=== PATIENT | female | born 1955 | race Caucasian/White ===

== ENCOUNTER → 2016-10-03 | Outpatient (CLI) | payer MEDICARE, MEDICAID | END | disposition home or self-care (01) | LOC: RAD.S 14:00 | DX: D45 Polycythemia vera (principal); F32.89 Other specified depressive episodes; F17.210 Nicotine dependence, cigarettes, uncomplicated ==

== ENCOUNTER → 2016-12-20 | Outpatient (CLI) | payer MEDICARE, MEDICAID | END | disposition home or self-care (01) | LOC: THER.SSS 13:52 | DX: D45 Polycythemia vera (principal) ==

== ENCOUNTER 2017-01-06 07:59 | Day surgery (SDC) | payer MEDICARE, MEDICAID ==
[~2017-01-06] VITALS: Ht 170.2 cm; Wt 111.4 kg
--- NOTE | ~2017-01-06 | CATH ---
Cardiac Diagnostic Report Demographics Patient Name TIM GEORGES Gender Female M Date of 1955 Age 62 year(s) Patient Number [id number] Date of Study 01/06/2017 Visit Number [id number] Room Number Corporate ID Ht 167.64 cm Wt 112.04 kg Accession Number [id number] BSA 2.19 m kg/m Referring Wilfredo CUETO Primary Physician Physician Willem Performing Wilfredo CUETO Secondary Physician Physician Willem Diagnostic Wilfredo CUETO Assisting Physician Physician Willem Interventional Wilfredo CUETO Physician Complaints Coordinator Physician Willem Findings and Conclusions Diagnostic Findings and Conclusion 1. Mild non-obstructive CAD. Diagnostic Recommendations 1. Risk factor modifications 2. Medical management of Afib. Procedure Description The patient was brought to the diagnostic cardiac catheterization laboratory in the fasting, non-sedated state. Informed consent was obtained in the written and verbal form after the risks and benefits were explained. The patient had no further questions and agreed to proceed. The planned puncture-incision site(s) were shaved and prepped with ChloraPrep and draped in the usual sterile manner. Conscious sedation, supplemental oxygen, and pain control medications were delivered by a registered nurse under physician guidance. Surface ECG rhythm, blood pressure measurement, and pulse oximetry were monitored throughout the procedure. Arterial access. The right radial access site was infiltrated with lidocaine. The vessel was entered with the Seldinger technique. A 6F michelle was advanced into the vessel and used for catheter placement. Selective left coronary angiography. A TIG catheter was advanced into the left coronary vessel ostium under Fluoroscopic guidance. Contrast was injected by hand. Images were obtained in multiple projections. Selective right coronary angiography. A TIG catheter was advanced into the right coronary vessel ostium under fluoroscopic guidance. Contrast was injected by hand. Images were obtained in multiple projections. Left heart catheterization. A PIG catheter was advanced across the aortic valve to the left ventricle under fluoroscopic guidance. Resting hemodynamics were obtained. Arterial artery hemostasis was achieved with TR band. The patient was transferred to a regular nursing floor via cart accompanied by a nurse. The patient left the laboratory in stable condition. Diagnostic Cath Status: Elective Procedure Procedure Type Diagnostic procedure:Angiography:, Coronary Angios w/[facility] Indications: Hyperlipidemia, Hypertension, Early family history of CAD, Tobacco use-current, Atrial fibrillation, Palpitations and Abnormal nuclear perfusion test. The procedure was explained in detail to the patient. Risks, complications and alternative treatments were reviewed. Written consent was obtained. Medications Reviewed with Patient prior to Procedure. Complications: No Complication. Angiographic Findings Dominance: Right Cardiac Arteries and Lesion Findings LMCA: Normal (0% Stenosis). LAD: Abnormal. Lesion on Prox LAD: 30% stenosis . LCx: Normal (0% Stenosis). RCA: Abnormal. Lesion on Dist RCA: 20% stenosis . Coronary Tree Procedure Data Procedure Date Date: 01/06/2017Start: 10:25 AM Entry Locations - Percutaneous access was performed through the Right Radial artery (Primary location). A 6 Fr sheath was inserted. Hemostasis was successfully obtained using a TR band. Procedure Medications Order and Administration + + +-------+-------+ !Time !Medication !Dosage !Route ! + + +-------+-------+ !01/06/2017 !Versed !2 mg !I.V. ! !10:28 AM ! ! ! ! + + +-------+-------+ !01/06/2017 !Fentanyl !50 mcg !I.V. ! !10:28 AM ! ! ! ! + + +-------+-------+ !01/06/2017 !Sodium Chloride !10 ml !I.V. ! !10:29 AM ! ! ! ! + + +-------+-------+ !01/06/2017 !Fentanyl !50 mcg !I.V. ! !10:32 AM ! ! ! ! + + +-------+-------+ !01/06/2017 !Versed !1 mg !I.V. ! !10:37 AM ! ! ! ! + + +-------+-------+ !01/06/2017 !SF Radial Cocktail: 200mcg Nitro, 2.5 mg ! !I.A. ! !10:40 AM !Verapamil, 5000u Heparin ! ! ! + + +-------+-------+ Devices Used - A6F TIG CATHETERwas used for:Coronary Angios. - ACATH 6FR PIG 145 110CM CATHETERwas used for:LV Pressures. Contrast Material - Isovue 04928 ml Fluoroscopy Time: Diagnostic: 2:54 minutes. Total: 2:54 minutes. Fluoroscopy Dose: Diagnostic: 523 mGy. Total: 523 mGy. Estimated Blood Loss: 9 ml. Medical History Performed Procedures and Imaging Results - Stress testing with SPECT MPIwas performed on 12/28/2016. Results were: Positive. Risk/Extent of ischemia was: Low risk. Allergies - Morphine. - Other:(Carvediolol, Benadryl, Benzepril, Tramadol, Diltiazem). Risk Factors The patient risk factors include:hypertension, family history of premature CAD, last creatinine: 0.9 mg/dl, creatinine clearance: 114.63 ml/min, dyslipidemia and Current/Recent(w/in 1 year) tobacco use. Admission Data Admission Date: 01/06/2017 Admission Time: 07:59 AM Insurance Payors: Medicare. Clinical Evaluation Leading to Procedure - The patient's CAD presentation was assessed as: Unstable angina. - The patient's anginal syndrome during the past two weeks was assessed as: Class III according to the [place] [employer] Classification System (CCS). Anti-anginal medications were prescribed during the past two weeks. The medications are: Beta Blockers and Ranolazine. Hemodynamics Condition: Rest O2 Consumption: Estimated: 207.65Heart Rate: 72 bpm Pressures (mmHg) +-----+ + !Site !Pressure ! +-----+ + !LV !110/3 ,6 ! +-----+ + !AO !102/49 (70) ! +-----+ + Shunts Oxygen Values O2 Capacity 204 O2 Consumption 207.65 Discharge Data Discharge Date: 01/06/2017 Hospital Status: Outpatient Signatures
== END 2017-01-06 13:27 | disposition home or self-care (01) ==
LOC: SSS 07:59
DX: I25.110 Atherosclerotic heart disease of native coronary artery with unstable angina pectoris (principal); I48.0 Paroxysmal atrial fibrillation; G47.33 Obstructive sleep apnea (adult) (pediatric); I10 Essential (primary) hypertension; E78.5 Hyperlipidemia, unspecified; F17.210 Nicotine dependence, cigarettes, uncomplicated; Z79.899 Other long term (current) drug therapy; Z88.6 Allergy status to analgesic agent